=== PATIENT | female | born 1940 | race Caucasian/White ===

== ENCOUNTER 2017-01-20 07:16 | Emergency (ER) | payer MEDICARE ==
[2017-01-20 07:29] VITALS: BP 144/82
--- NOTE | 2017-01-20 07:46 | UC ---
Rectal Pain HPI - HPI Summary HPI Summary: The patient comes in today for: 1. Rectal bump: Onset: Yesterday. Palliative/provocative: Tucks pads with witchhazel helped? Quality: Sore Region: Perirectal Severity: 2/10 Time: Constant. Associated symptoms: Soreness: Present Drainage: None known to the patient. * - History Of Current Complaint Chief Complaint: UCGI Stated Complaint: PERSONAL Time Seen by Provider: 01/20/17 07:38 Hx Obtained From: Patient - Allergies/Home Medications Allergies/Adverse Reactions: Allergies Allergy/AdvReac Type Severity Reaction Status Date / Time Morphine Allergy Unknown Verified 01/20/17 07:29 Reaction Details PMH/Surg Hx/FS Hx/Imm Hx Previously Healthy: No - Menopause Endocrine History Of: Reports: Dyslipidemia Denies: Diabetes, Thyroid Disease, Hyperthyroidism, Hypothyroidism Cardiovascular History Of: Denies: Cardiac Disorders, Hypertension, Pacemaker/ICD, Myocardial Infarction , Congestive Heart Failure, Atrial Fibrillation, Deep Vein Thrombosis, Bleeding Disorders Respiratory History Of: Denies: COPD, Asthma, Bronchitis, Pneumonia, Pulmonary Embolism GI/ History Of: Denies: Gastroesophageal Reflux, Ulcer, Gastrointestinal Bleed, Gall Bladder Disease, Kidney Stones, Diverticulitis, Renal Disease, Urosepsis Neurological History Of: Denies: TIA, CVA, Dementia, Seizures, Migraine Psychological History Of: Denies: Anxiety, Depression, Bipolar Disorder, Schizophrenia, Post Traumatic Stress Disorder Cancer History Of: Denies: Lung Cancer, Colorectal Cancer, Breast Cancer, Prostate Cancer, Cervical Cancer Other History Of: Negative For: HIV, Hepatitis B, Hepatitis C, Anticoagulant Therapy - Surgical History Surgical History: Yes Surgery Procedure, Year, and Place: APPENDECTOMY; C SECTION X1; HYSTERECTOMY; CHOLECYSTECTOMY - Family History Known Family History: Positive: Hypertension Negative: Cardiac Disease - Social History Occupation: Retired Lives: With Family Alcohol Use: Occasionally Substance Use Type: None Smoking Status (MU): Never Smoked Tobacco Review of Systems Constitutional: Negative Skin: Negative Eyes: Negative ENT: Negative Respiratory: Negative Cardiovascular: Negative Gastrointestinal: Negative Genitourinary: Negative All Other Systems Reviewed And Are Negative: Yes Physical Exam Triage Information Reviewed: Yes Appearance: Well-Appearing, No Pain Distress, Well-Nourished Vital Signs: Initial Vital Signs Temp 97.3 F 01/20/17 07:20 Pulse 105 05/22/17 07:20 Resp 18 01/20/17 07:20 BP 144/82 01/20/17 07:20 Vital Signs Reviewed: Yes Eyes: Positive: Conjunctiva Clear. Negative: Discharge ENT: Positive: Hearing grossly normal. Negative: Pharyngeal erythema, Nasal congestion, Nasal drainage, TM bulging, TM dull, TM red Dental: Negative: Gross Decay/Caries @, Dental Fracture @ Neck: Positive: Supple, Nontender, No Lymphadenopathy. Negative: Nuchal Rigidity Respiratory: Positive: Chest non-tender, Lungs clear, No respiratory distress, No accessory muscle use. Negative: Rhonchi, Wheezing Cardiovascular: Positive: RRR, No Murmur Abdomen Description: Positive: Nontender, No Organomegaly, Soft. Negative: Distended, Guarding Musculoskeletal: Positive: Strength Intact, ROM Intact, No Edema Neurological: Positive: Alert, Muscle Tone Normal Psychological: Positive: Age Appropriate Behavior, Consolable Skin: Negative: rashes, breakdown UC Physical Exam Vital Signs On Initial Exam: Initial Vitals Temp Pulse Resp BP 97.3 F 105 18 144/82 01/20/17 07:20 01/20/17 07:20 01/20/17 07:20 01/20/17 07:20 - Rectal Exam Rectal Exam: Mass - The patient a 1.5 x 0.5 cm flesh-colored linear mass, which is not particularly tender mass centered about 1 cm out of the anal opening. There is no cyanosis. There is no head to it or any drainage. Digital exam revealed that the mass does not extend deeper than the subcutaneous fat. No abnormal blood vessels seen. No fluctuance. Rectal Pain Course/Dx - Course Course Of Treatment: Perianal mass--small thrombosed hemorrhoid. - Differential Dx/Diagnosis Provider Diagnoses: High blood pressure. Perianal mass/thrombosed hemorrhoid. Discharge - Discharge Plan Condition: Stable Disposition: HOME Patient Education Materials: Thrombosed Hemorrhoid (ED) Referrals: Gilbert Yip MD [Primary Care Provider] - 1 Week (Please see your primary care provider in about one to two weeks to see how well you are doing. If you get worse, please be seen sooner.)
== END 2017-01-20 08:19 | disposition home or self-care (01) ==
LOC: UCCORT 07:16
DX: K64.5 Perianal venous thrombosis (principal); R03.0 Elevated blood-pressure reading, without diagnosis of hypertension; Z88.5 Allergy status to narcotic agent; E78.5 Hyperlipidemia, unspecified; Z90.710 Acquired absence of both cervix and uterus; Z90.49 Acquired absence of other specified parts of digestive tract
CPT/HCPCS: 82270; 99212; G0463

== ENCOUNTER 2017-07-25 09:17 | Emergency (ER) | payer MEDICARE ==
--- NOTE | 2017-07-25 09:37 | UC ---
Respiratory Complaint HPI - HPI Summary HPI Summary: 77 YEAR OLD FEMALE PRESENTS WITH COMPLAINS OF COUGH SECONDARY TO POST NASAL DRIP AND AN EXTERNAL HEMORRHOID AT 3 PM - History of Current Complaint Stated Complaint: COUGH Time Seen by Provider: 07/25/17 09:36 Hx Obtained From: Patient Onset/Duration: Lasting Days Severity Initially: Moderate Severity Currently: Moderate - Allergies/Home Medications Allergies/Adverse Reactions: Allergies Allergy/AdvReac Type Severity Reaction Status Date / Time Morphine Allergy Unknown Verified 07/25/17 09:40 Reaction Details Home Medications: Home Medications Cholecalciferol TAB* [Vitamin D TAB*] 1,000 unit PO DAILY 07/25/17 [History Confirmed 07/25/17] PMH/Surg Hx/FS Hx/Imm Hx Previously Healthy: Yes Other History Of: Negative For: HIV, Hepatitis B, Hepatitis C, Anticoagulant Therapy - Surgical History Surgical History: Yes Surgery Procedure, Year, and Place: APPENDECTOMY; C SECTION X1; HYSTERECTOMY; CHOLECYSTECTOMY - Family History Known Family History: Positive: Hypertension Negative: Cardiac Disease - Social History Alcohol Use: Occasionally Substance Use Type: None Smoking Status (MU): Never Smoked Tobacco Review of Systems Constitutional: Negative Skin: Negative Eyes: Negative ENT: Negative, Nasal Discharge, Sinus Congestion, Sinus Pain/Tenderness Respiratory: Cough Cardiovascular: Negative Gastrointestinal: Other - EXTERNAL HEMORRHOID Genitourinary: Negative Motor: Negative Neurovascular: Negative Musculoskeletal: Negative Neurological: Negative Psychological: Negative All Other Systems Reviewed And Are Negative: Yes Physical Exam Triage Information Reviewed: Yes Vital Signs Reviewed: Yes Eye Exam: Normal ENT Exam: Normal ENT: Positive: Nasal congestion, Nasal drainage Dental Exam: Normal Neck exam: Normal Neck: Positive: 1 Respiratory Exam: Normal Cardiovascular Exam: Normal Abdominal Exam: Normal Abdomen Description: Positive: Other: - EXTERNAL HEMORRHOID Musculoskeletal Exam: Normal Neurological Exam: Normal Psychological Exam: Normal Skin Exam: Normal Respiratory Course/Dx - Differential Dx/Diagnosis Provider Diagnoses: EXTERNAL HEMORRHOID. POST NASAL DRIP. ALLERGIC RHINITIS Discharge - Discharge Plan Condition: Stable Disposition: HOME Prescriptions: Benzonatate [TESSALON 200 MG CAP] 200 mg PO TID PRN #30 cap PRN Reason: Cough Hydrocortisone Acetate W/ Pram [Analpram Hc 2.5-1 %] 1 cre CO BID PRN #1 tube PRN Reason: Pain Hydrocortisone SUPP* [Anusol HC Supp*] 25 mg CO BID PRN #1 box PRN Reason: Pain Promethazine-Dm [Promethazine/Dextromethor 6.25-15 mg/5Ml] 1 teasp PO BEDTIME PRN #120 ml PRN Reason: Cough Patient Education Materials: Hemorrhoids (ED), Acute Cough (ED) Referrals: Gilbert Yip MD [Medical Doctor] - Arabella SANFORD,Dayton Rueda [Medical Doctor] -
[2017-07-25 09:40] VITALS: BP 131/73
== END 2017-07-25 10:00 | disposition home or self-care (01) ==
LOC: UCCORT 09:17
DX: K64.4 Residual hemorrhoidal skin tags (principal); J30.9 Allergic rhinitis, unspecified
CPT/HCPCS: 99212; G0463

== ENCOUNTER 2018-01-26 14:38 | Emergency (ER) | payer MEDICARE ==
[2018-01-26 15:16] VITALS: BP 119/79
--- NOTE | 2018-01-26 15:24 | UC ---
Respiratory Complaint HPI - HPI Summary HPI Summary: 77 yo female with cough x 8 days productive no CP or SOB no n/v/d feverish and chills last APM - History of Current Complaint Chief Complaint: UCRespiratory Stated Complaint: COUGH Time Seen by Provider: 01/26/18 15:14 Hx Obtained From: Patient Hx Last Menstrual Period: n/a Onset/Duration: Gradual Onset, Lasting Days - 8 Timing: Constant Severity Initially: Mild Severity Currently: Moderate Pain Intensity: 0 Pain Scale Used: 0-10 Numeric Character: Cough: Productive Aggravating Factors: Exertion, Recumbent Position Alleviating Factors: Nothing Associated Signs And Symptoms: Positive: Fever - jc last PM, Chills, Nasal Congestion - Allergies/Home Medications Allergies/Adverse Reactions: Allergies Allergy/AdvReac Type Severity Reaction Status Date / Time morphine Allergy Unknown Verified 01/26/18 15:19 Reaction Details Home Medications: Home Medications Cetirizine* [ZyrTEC 10 MG TAB*] 10 mg PO DAILY 01/26/18 [History Confirmed 01/26] PMH/Surg Hx/FS Hx/Imm Hx Previously Healthy: Yes Other History Of: Negative For: HIV, Hepatitis B, Hepatitis C, Anticoagulant Therapy - Surgical History Surgical History: Yes Surgery Procedure, Year, and Place: APPENDECTOMY; C SECTION X1; HYSTERECTOMY; CHOLECYSTECTOMY - Family History Known Family History: Positive: Hypertension Negative: Cardiac Disease - Social History Alcohol Use: Occasionally Substance Use Type: None Smoking Status (MU): Never Smoked Tobacco - Immunization History Most Recent Influenza Vaccination: yes 2016 Review of Systems Constitutional: Fever - jc, Chills Skin: Negative Eyes: Negative ENT: Negative Respiratory: Negative Cardiovascular: Negative Gastrointestinal: Negative Genitourinary: Negative Motor: Negative Neurovascular: Negative Musculoskeletal: Negative Neurological: Negative Psychological: Negative Is Patient Immunocompromised?: No All Other Systems Reviewed And Are Negative: Yes Physical Exam Triage Information Reviewed: Yes Appearance: Well-Appearing, No Pain Distress, Well-Nourished Vital Signs: Initial Vital Signs Temp 98.7 F 01/26/18 15:13 Pulse 96 01/26/18 15:13 Resp 18 01/26/18 15:13 BP 119/79 01/26/18 15:13 Pulse Ox 99 01/26/18 15:13 Eyes: Positive: Conjunctiva Clear ENT: Positive: Hearing grossly normal, Uvula midline. Negative: Nasal congestion, Nasal drainage, Tonsillar swelling, Tonsillar exudate, Trismus, Hoarse voice, Sinus tenderness Neck: Positive: Supple, Nontender, No Lymphadenopathy Respiratory: Positive: Lungs clear, Normal breath sounds, No respiratory distress, No accessory muscle use Cardiovascular: Positive: RRR, No Murmur Musculoskeletal: Positive: ROM Intact, No Edema Neurological: Positive: Alert Psychological Exam: Normal Skin Exam: Normal UC Diagnostic Evaluation - Laboratory O2 Sat by Pulse Oximetry: 99 - normal/not hypoxic - Radiology Xray Interpretation: No Acute Changes Radiology Interpretation Completed By: Radiologist Respiratory Course/Dx - Differential Dx/Diagnosis Provider Diagnoses: acute bronchitis Discharge - Sign-Out/Discharge Documenting (check all that apply): Discharge/Admit/Transfer - Discharge Plan Condition: Stable Disposition: HOME Prescriptions: Azithromycin TAB* [Zithromax TAB*] 250 mg PO DAILY #6 tab Patient Education Materials: Acute Bronchitis (ED) Referrals: Leticia Campbell MD [Primary Care Provider] - 4 Days (if not better) Additional Instructions: recheck for new or worsening symptoms - Billing Disposition and Condition Condition: STABLE Disposition: HOME
--- NOTE | 2018-01-26 15:36 | RAD ---
HISTORY: Cough COMPARISONS: October 20, 2013 VIEWS: 4: Frontal dual-energy and lateral views of the chest. FINDINGS: CARDIOMEDIASTINAL SILHOUETTE: The cardiomediastinal silhouette is normal. PATRIA: The patria are normal. PLEURA: The costophrenic angles are sharp. No pleural abnormalities are noted. LUNG PARENCHYMA: The lungs are clear. ABDOMEN: The upper abdomen is clear. There is no subphrenic gas. BONES AND SOFT TISSUES: Degenerative changes are noted along the spine. OTHER: None. IMPRESSION: NO ACTIVE CARDIOPULMONARY DISEASE.
== END 2018-01-26 15:50 | disposition home or self-care (01) ==
LOC: UCCORT 14:38
DX: J20.9 Acute bronchitis, unspecified (principal); Z88.5 Allergy status to narcotic agent
CPT/HCPCS: 71046; 99212; G0463

== ENCOUNTER 2018-02-04 09:12 | Emergency (ER) | payer MEDICARE ==
[2018-02-04 09:21] VITALS: BP 128/73
--- NOTE | 2018-02-04 09:41 | UC ---
Respiratory Complaint HPI - HPI Summary HPI Summary: She was diagnosed with acute bronchitis and was treated with z pack. She had an x ray as well which did nto show pneumonia. Since then the congestion and cough during the day is better but she has a cough at night. It is non productive mainly. No fever. NO cp, sob or mclaughlin. - History of Current Complaint Chief Complaint: UCRespiratory Stated Complaint: RE-CHECK RESPIRATORY Time Seen by Provider: 02/04/18 09:25 Hx Obtained From: Patient Hx Last Menstrual Period: n/a Onset/Duration: Gradual Onset, Lasting Weeks Timing: Constant Severity Initially: Moderate Severity Currently: Mild Pain Intensity: 0 Character: Cough: Nonproductive Aggravating Factors: Recumbent Position Alleviating Factors: OTC Meds, Spontaneous Resolution Associated Signs And Symptoms: Negative: Dyspnea, Fever, Chills, Pleuritic Chest Pain, Hemoptysis, Dizziness, Calf Pain, Calf Swelling, Edema, URI, Nasal Congestion - Allergies/Home Medications Allergies/Adverse Reactions: Allergies Allergy/AdvReac Type Severity Reaction Status Date / Time morphine Allergy Unknown Verified 02/04/18 09:21 Reaction Details PMH/Surg Hx/FS Hx/Imm Hx Previously Healthy: No - no prior lung or heart disease. Non smoker. Other History Of: Negative For: HIV, Hepatitis B, Hepatitis C, Anticoagulant Therapy - Surgical History Surgical History: Yes Surgery Procedure, Year, and Place: APPENDECTOMY; C SECTION X1; HYSTERECTOMY; CHOLECYSTECTOMY - Family History Known Family History: Positive: Hypertension Negative: Cardiac Disease - Social History Alcohol Use: Occasionally Substance Use Type: None Smoking Status (MU): Never Smoked Tobacco - Immunization History Most Recent Influenza Vaccination: yes 2017 Review of Systems Respiratory: Cough All Other Systems Reviewed And Are Negative: Yes Physical Exam Triage Information Reviewed: Yes Appearance: Well-Appearing, No Pain Distress, Well-Nourished Vital Signs: Initial Vital Signs Temp 98.4 F 02/04/18 09:16 Pulse 84 02/04/18 09:16 Resp 18 02/04/18 09:16 BP 128/73 02/04/18 09:16 Pulse Ox 100 02/04/18 09:16 Vital Signs Reviewed: Yes Eyes: Positive: Conjunctiva Clear ENT: Positive: Normal ENT inspection, TMs normal, Uvula midline. Negative: Pharyngeal erythema, Nasal congestion, TM bulging, TM dull, TM red, Tonsillar swelling, Tonsillar exudate, Trismus, Sinus tenderness Neck: Positive: Supple, Nontender, No Lymphadenopathy Respiratory: Positive: Lungs clear, Normal breath sounds, No respiratory distress, No accessory muscle use. Negative: Respiratory distress, Decreased breath sounds, Accessory muscle use, Crackles, Rhonchi, Stridor, Wheezing Cardiovascular: Positive: No Murmur, Pulses Normal Abdomen Description: Positive: Nontender, No Organomegaly. Negative: Distended , Guarding Musculoskeletal: Positive: Strength Intact, ROM Intact, No Edema Neurological: Positive: Alert, Muscle Tone Normal. Negative: Fatigued Psychological: Positive: Age Appropriate Behavior Skin: Negative: rashes UC Diagnostic Evaluation - Laboratory O2 Sat by Pulse Oximetry: 100 Respiratory Course/Dx - Course Course Of Treatment: post bronchitis cough without any clinical signs of pneumonia or wheezing. Supportive care including tea, tessalon perles, ibuprofen prn. - Differential Dx/Diagnosis Provider Diagnoses: post bronchitis cough Discharge - Sign-Out/Discharge Documenting (check all that apply): Discharge/Admit/Transfer - Discharge Plan Condition: Good Disposition: HOME Prescriptions: Benzonatate CAP* [Tessalon 100 MG CAP*] 100 mg PO TID #30 cap Patient Education Materials: Antihistamine/Antitussive (By mouth) Referrals: Leticia Campbell MD [Primary Care Provider] - - Billing Disposition and Condition Condition: GOOD Disposition: Home
== END 2018-02-04 09:39 | disposition home or self-care (01) ==
LOC: UCCORT 09:12
DX: R05 Cough (principal); Z88.5 Allergy status to narcotic agent
CPT/HCPCS: 99212; G0463

== ENCOUNTER 2018-06-22 11:21 | Emergency (ER) | payer MEDICARE ==
[2018-06-22 13:02] VITALS: BP 139/76
--- NOTE | 2018-06-22 13:13 | UC ---
Abdominal Pain Female HPI - HPI Summary HPI Summary: 78-year-old female presents with lower abdominal cramping. States 3 days ago started with some lower abdominal cramping then following day had several episodes of vomiting which resolved by the next day. States she is still having some occasional mild cramping however this is also improving. Normal formed BM this morning. Denies fever, chills, chest pain, shortness of breath, hematemesis, diarrhea, blood in stool, melena, dysuria, frequency, or urgency. History of cholecystectomy, appendectomy, and total hysterectomy. Has been receiving routine colonoscopy screening. Last 9 years ago. Normal. - History of Current Complaint Chief Complaint: UCGI Stated Complaint: VOMITING,STOMACH CRAMPS Time Seen by Provider: 06/22/18 12:49 Hx Obtained From: Patient Hx Last Menstrual Period: n/a Onset/Duration: Lasting Days Severity Initially: Moderate Severity Currently: None Pain Intensity: 0 Location: Other - lower abdomen Radiates: No Character: Cramping Aggravating Factor(s): Nothing Alleviating Factor(s): Nothing Associated Signs and Symptoms: Positive: Nausea, Vomiting. Negative: Fever, Chest Pain, Dizzy, Constipation, Blood in Stool, Urinary Symptoms, Vaginal Discharge, Diarrhea Allergies/Adverse Reactions: Allergies Allergy/AdvReac Type Severity Reaction Status Date / Time morphine Allergy Unknown Verified 06/22/18 12:53 Reaction Details PMH/Surg Hx/FS Hx/Imm Hx Endocrine History: Dyslipidemia Other History Of: Negative For: HIV, Hepatitis B, Hepatitis C, Anticoagulant Therapy - Surgical History Surgical History: Yes Surgery Procedure, Year, and Place: APPENDECTOMY; C SECTION X1; HYSTERECTOMY; CHOLECYSTECTOMY - Family History Known Family History: Positive: Hypertension Negative: Cardiac Disease - Social History Occupation: Retired Lives: With Family Alcohol Use: Occasionally Substance Use Type: None Smoking Status (MU): Never Smoked Tobacco - Immunization History Most Recent Influenza Vaccination: yes 2017 Review of Systems Constitutional: Negative Skin: Negative Respiratory: Negative Cardiovascular: Negative Gastrointestinal: Abdominal Pain, Vomiting, Nausea Genitourinary: Negative Is Patient Immunocompromised?: No All Other Systems Reviewed And Are Negative: Yes Physical Exam Triage Information Reviewed: Yes Appearance: Well-Appearing, No Pain Distress, Well-Nourished Vital Signs: Initial Vital Signs Temp 97.2 F 06/22/18 12:54 Pulse 85 10/22/18 12:54 Resp 16 06/22/18 12:54 BP 139/76 06/22/18 12:54 Pulse Ox 100 06/22/18 12:54 Respiratory: Positive: Lungs clear, Normal breath sounds, No respiratory distress Cardiovascular: Positive: RRR, No Murmur, Pulses Normal, Brisk Capillary Refill Abdomen Description: Positive: Nontender, No Organomegaly, Soft. Negative: CVA Tenderness (R), CVA Tenderness (L), Distended, Guarding Neurological: Positive: Alert Skin Exam: Normal Abd Pain Female Course/Dx - Course Course Of Treatment: 78 year old female with onset of lower abdominal cramping 3 days ago with 1 day of vomiting which has resolved. She states her symptoms are improving. Exam was unremarkable. Afebrile. VSS. Symptoms are likely from a viral gastroenteritis. Recommend watchful waiting. She has appointment with PCP sheduled in 2 days. Warning symptoms reviewed. Patient verbalizes understanding and agrees with POC. - Differential Dx/Diagnosis Provider Diagnoses: abdominal cramping Discharge - Sign-Out/Discharge Documenting (check all that apply): Patient Departure All imaging exams completed and their final reports reviewed: No Studies - Discharge Plan Condition: Stable Disposition: HOME Patient Education Materials: Abdominal Pain (ED) Referrals: Leticia Campbell MD [Primary Care Provider] - 2 Days (As scheduled.) Additional Instructions: With your symptoms improving it is most likely you had a viral infection that caused your cramping and vomiting. These typically run their course in a few days. Be sure to push fluids as you are likely a little dehydrated from the vomiting. Keep your appointment with your primary care provider as scheduled on Friday for recheck. Seek immediate medical attention in the emergency room if you develop fever greater than 100.5 F, have worsening of abdominal pain, persistent vomiting, blood in your stool, dark black stools, or any worsening of symptoms. - Billing Disposition and Condition Condition: STABLE Disposition: Home
== END 2018-06-22 13:37 | disposition home or self-care (01) ==
LOC: UCCORT 11:21
DX: R10.9 Unspecified abdominal pain (principal); Z88.5 Allergy status to narcotic agent
CPT/HCPCS: 99211; G0463

== ENCOUNTER 2019-06-09 09:19 | Emergency (ER) | payer MEDICARE, OTHER ==
[2019-06-09 09:33] VITALS: BP 146/75
--- NOTE | 2019-06-09 10:11 | UC ---
Abdominal Pain Female HPI - HPI Summary HPI Summary: 79-year-old female who started experiencing abdominal discomfort 3 days ago. She has some nausea. No vomiting or diarrhea. She does have a history of frequent urinary tract infections however the symptoms are different from that. She denies any burning on urination. - History of Current Complaint Chief Complaint: UCAbdominalPain Stated Complaint: STOMACH/BACK PAIN Time Seen by Provider: 06/09/19 10:03 Hx Obtained From: Patient Hx Last Menstrual Period: n/a ?: No Onset/Duration: Gradual Onset Timing: Constant Severity Initially: Mild Severity Currently: Mild Pain Intensity: 0 Location: Diffuse Radiates: Yes Radiates to: Back - The discomfort radiates around to her back. Character: Aching, Cramping, Dull Aggravating Factor(s): Nothing Alleviating Factor(s): Nothing Associated Signs and Symptoms: Positive: Nausea Allergies/Adverse Reactions: Allergies Allergy/AdvReac Type Severity Reaction Status Date / Time morphine Allergy Unknown Verified 06/22/18 12:53 Reaction Details Home Medications: Home Medications Multivitamin [Multiple Vitamins] 1 tab PO DAILY 06/09/19 [History Confirmed 05/20] PMH/Surg Hx/FS Hx/Imm Hx Previously Healthy: Yes Endocrine History: Dyslipidemia Other History Of: Negative For: HIV, Hepatitis B, Hepatitis C, Anticoagulant Therapy - Surgical History Surgical History: Yes Surgery Procedure, Year, and Place: APPENDECTOMY; C SECTION X1; HYSTERECTOMY; CHOLECYSTECTOMY - Family History Known Family History: Positive: Hypertension Negative: Cardiac Disease - Social History Alcohol Use: Occasionally Substance Use Type: None Smoking Status (MU): Never Smoked Tobacco - Immunization History Most Recent Influenza Vaccination: yes 2017 Review of Systems All Other Systems Reviewed And Are Negative: Yes Gastrointestinal: Positive: Abdominal Pain - Patient describes the pain as "sore " not specifically painful., Nausea Genitourinary: Positive: Negative Is Patient Immunocompromised?: No Physical Exam Triage Information Reviewed: Yes Appearance: Well-Appearing, No Pain Distress, Well-Nourished Vital Signs: Initial Vital Signs Temp 97.1 F 06/09/19 09:30 Pulse 100 06/09/19 09:30 Resp 16 06/09/19 09:30 BP 146/75 06/09/19 09:30 Pulse Ox 100 06/09/19 09:30 Vital Signs Reviewed: Yes Eyes: Positive: Conjunctiva Clear ENT: Positive: Pharynx normal, TMs normal, Uvula midline Neck: Positive: Supple, Nontender, No Lymphadenopathy Respiratory: Positive: Lungs clear, Normal breath sounds, No respiratory distress, No accessory muscle use Cardiovascular: Positive: RRR, No Murmur, Pulses Normal, Brisk Capillary Refill Abdomen Description: Positive: No Organomegaly, Soft, Other: - Patient states more discomfort over the suprapubic area but the entire abdomen is "sore".. Negative: CVA Tenderness (R), CVA Tenderness (L), Distended, Guarding, Hepatomegaly, McBurney's Point Tenderness, Splenomegaly Musculoskeletal Exam: Normal Neurological Exam: Normal Psychological Exam: Normal Abd Pain Female Course/Dx - Course Course Of Treatment: Urinalysis: Negative Because of the patient's age and her level of abdominal discomfort as well as a negative urine I feel she needs to be evaluated in the emergency room for further testing. She refuses an ambulance transport and I believe she is stable enough to be able drive herself. - Differential Dx/Diagnosis Provider Diagnosis: Diffuse abdominal pain Discharge ED - Sign-Out/Discharge Documenting (check all that apply): Patient Departure All imaging exams completed and their final reports reviewed: No Studies - Discharge Plan Condition: Fair Disposition: HOME-RECOMMEND TO ED Referrals: Leticia Campbell MD [Primary Care Provider] - Additional Instructions: After the evaluation by the nurse practitioner, it is recommended that you go to the emergency room for further evaluation of the abdominal pain where you should receive additional testing that can be completed in the emergency department. It is recommended that you go directly to the emergency department. This evaluation may include blood work or imaging. This testing will be directed and decided by the provider that evaluates you within the emergency department. If pain becomes worse, you feel lightheaded or you develop uncontrolled vomiting, or have any other concerns while you are driving to the emergency room, please pullman car repairer and call 911. - Billing Disposition and Condition Condition: FAIR Disposition: Home-Recommend to ED
== END 2019-06-09 10:46 | disposition home health service (06) ==
LOC: UCCORT 09:19
DX: R10.84 Generalized abdominal pain (principal); Z88.5 Allergy status to narcotic agent
CPT/HCPCS: 81003; 99212; G0463